=== PATIENT | male | born 1965 | race Caucasian/White ===

== ENCOUNTER → 2021-12-23 | Outpatient (CLI) | payer MEDICARE, SELFPAY ==
[2021-12-23 14:03] LABS: Amphetamine Urine VISTA NEGATIVE (<1000 ng/mL); Barbiturate Urine VISTA NEGATIVE (< 200 ng/mL); Benzodiazepine Urine VISTA NEGATIVE (< 200 ng/mL); Cocaine Urine VISTA NEGATIVE (< 300 ng/mL); Ecstacy Urine VISTA NEGATIVE (< 500 ng/mL); Methadone Urine VISTA NEGATIVE (< 300 ng/mL); PCP Urine VISTA NEGATIVE (< 25 ng/mL); THC Urine VISTA NEGATIVE (< 50 ng/mL); Vista UDS pH Range 5
== END | disposition home or self-care (01) ==
PROVIDERS: Visit Provider Anesthesiology Pain Medicine
DX: F11.20 Opioid dependence, uncomplicated (principal)
CPT/HCPCS: 80307

== ENCOUNTER → 2023-05-24 | Outpatient (CLI) | payer MEDICARE, SELFPAY ==
--- OUTSIDE RECORDS SUMMARY | 2023-05-24 19:48 | XMS RPT_ITS | CCD ---
Author Name Unknown Address [address] [place] [address] Organization [facility] Care Team Providers Care Qlikview Developer Name Role Phone Rios BELLAMY, Jay Olvera Primary Care Provider [phone] JAY NAITON Referring Unavailable LIDA, ANGELITA Attending Unavailable RIOS, JAY Olvera Primary Care Unavailable RIOS, JAY Olvera Primary Care Unavailable RIOS, JAY Olvera Attending Unavailable RIOS, JAY Olvera Referring Unavailable RIOS, JAY Olvera Primary Care Unavailable RIOS, JAY Olvera Referring Unavailable RIOS, JAY Olvera Primary Care Unavailable RIOS, JAY Olvera Attending Unavailable RIOS, JAY Olvera Referring Unavailable RIOS, JAY Olvera Primary Care Unavailable Jay Nation MD Primary Care Provider [phone] Allergies Allergy Classification Reported Allergen(s) Allergy Type Date of Onset Reaction(s) Facility (2 sources) Penicillins; Translations: [PENICILLINS] Propensity to adverse reactions 03-08-2006 [facility] Work Phone: (7 sources) Penicillins Propensity to adverse reactions 03-08-2006 [facility] Work Phone: Medications Completed/Discontinued Medications Medication Drug Class(es) Dates Sig (Normalized) Sig (Original) Acetaminophen (8 sources) acetaminophen (T YLENOL EXTRA STRENGTH ORAL) Take 1 tablet by mouth as needed. 0 Active Problems Problem Classification Problem Date Documented Date Episodic/Chronic Diabetes mellitus without complication (14 sources) Type 2 diabetes mellitus without complication; Translations: [Type 2 diabetes mellitus without complications] Onset: 11-16-2014 Chronic Disorders of lipid metabolism (12 sources) Mixed hyperlipidemia; Translations: [Mixed hyperlipidemia] Onset: 04-14-2021 04-14-2021 Chronic Esophageal disorders (8 sources) Gastroesophageal reflux disease; Translations: [Gastro-esophageal reflux disease without esophagitis] Onset: 04-14-2021 04-14-2021 Chronic Essential hypertension (3 sources) Essential hypertension; Translations: [Essential (primary) hypertension] Onset: 10-15-2022 10-15-2022 Chronic Other nutritional; endocrine; and metabolic disorders (8 sources) Obesity; Translations: [Obesity, unspecified] Onset: 05-02-2009 05-02-2009 Chronic Other screening for suspected conditions (not mental disorders or infectious disease) (3 sources) Patient encounter status; Translations: [Encounter for screening for malignant neoplasm of colon] Episodic Spondylosis; intervertebral disc disorders; other back problems (20 sources) Disorder of lumbar disc; Translations: [Unspecified thoracic, thoracolumbar and lumbosacral intervertebral disc disorder] Onset: 05-02-2009 Chronic Spondylosis; intervertebral disc disorders; other back problems (1 source) Chronic thoracic back pain; Translations: [Pain in thoracic spine] Episodic Results Test Name Value Interpretation Reference Range Facil ity Vital Signs Date Time Vital Sign Value Performing Clinician Faci lity 10-15-2022 08:22-0400 Diastolic blood pressure 81 mm[Hg] Jay Nation MD Work Phone: [facility] 10-15-2022 08:22-0400 Heart rate 84 /min Jay Nation MD Work Phone: [facility] 10-15-2022 08:22-0400 Systolic blood pressure 159 mm[Hg] Jay Nation MD Work Phone: [facility] 10-15-2022 08:17-0400 Body weight 112.95 kg Jay Nation MD Work Phone: [facility] 10-15-2022 08:17-0400 Respiratory rate 24 /min Jay Nation MD Work Phone: [facility] 10-15-2022 08:17-0400 SaO2% (BldA) [Mass fraction] 96 % Jay Nation MD Work Phone: [facility] 04-16-2022 08:57-0500 Body temperature 97.3 [degF] Jay Nation MD Work Phone: [facility] 04-16-2022 08:57-0500 Body weight 106.59 kg Jya Nation MD Work Phone: [facility] 04-16-2022 08:57-0500 Diastolic blood pressure 70 mm[Hg] Jay Nation MD Work Phone: [facility] 04-16-2022 08:57-0500 Heart rate 100 /min Jay Nation MD Work Phone: [facility] 04-16-2022 08:57-0500 Respiratory rate 20 /min Jay Nation MD Work Phone: [facility] 04-16-2022 08:57-0500 Systolic blood pressure 130 mm[Hg] Jay Nation MD Work Phone: [facility] 10-14-2021 08:54-0400 Body temperature 97.11 [degF] Jay Nation MD Work Phone: [facility] 10-14-2021 08:54-0400 Body weight 92.53 kg Jay Nation MD Work Phone: [facility] 10-14-2021 08:54-0400 Diastolic blood pressure 64 mm[Hg] Jay Nation MD Work Phone: [facility] 10-14-2021 08:54-0400 Heart rate 100 /min Jay Nation MD Work Phone: [facility] 10-14-2021 08:54-0400 Respiratory rate 24 /min Jay Nation MD Work Phone: [facility] 10-14-2021 08:54-0400 Systolic blood pressure 124 mm[Hg] Jay Nation MD Work Phone: [facility] 07-14-2021 08:59-0400 Body weight 92.99 kg Angelita Older GIVING OFFICER.RIPSHEAR OPERATOR Work Phone: [facility] 07-14-2021 08:59-0400 Diastolic blood pressure 74 mm[Hg] Angelita Older GIVING OFFICER.RIPSHEAR OPERATOR Work Phone: [facility] 07-14-2021 08:59-0400 Heart rate 108 /min Angelita Older GIVING OFFICER.RIPSHEAR OPERATOR Work Phone: [facility] 07-14-2021 08:59-0400 Respiratory rate 16 /min Angelita Older GIVING OFFICER.RIPSHEAR OPERATOR Work Phone: [facility] 07-14-2021 08:59-0400 SaO2% (BldA) [Mass fraction] 98 % Angelita Older GIVING OFFICER.RIPSHEAR OPERATOR Work Phone: [facility] 07-14-2021 08:59-0400 Systolic blood pressure 128 mm[Hg] Angelita Older GIVING OFFICER.RIPSHEAR OPERATOR Work Phone: [facility] Encounters Encounter Date Encounter Type Care Provider Facility Start: 05-06-2023 Refill Jay sapp MD Work Phone: [facility] [place] Procedures Date Procedure Procedure Detail Performing Clinician Start: 10-14-2021 Hemoglobin A1c/Hemoglobin.total in Blood Jay Nation MD Work Phone: Start: 04-14-2021 Adult depression screening assessment Angelita Older GIVING OFFICER.RIPSHEAR OPERATOR Work Phone: Plan of Treatment Date Care Activity Detail Author Start: 10-17-2023 Screening for malign ant neoplasm of colon [facility] Start: 10-16-2023 ANNUAL PCP TEAM CLAIMS COUNSEL [place]WIN DISEASE VISIT ANNUAL PCP TEAM CHRONIC DISEASE VISIT [facility] Start: 10-16-2023 COVID-19 VACCINE (3 - Moderna series) COVID-19 VACCINE (3 - Moderna series) [facility] Immunizations Immunization Date Immunization Notes Care Provider Fa cility 02-20-2015 influenza, injectabl e, quadrivalent, contains preservative Angelita Older GIVING OFFICER.RIPSHEAR OPERATOR Work Phone: [facility] 02-20-2015 influenza, seasonal, injectable Angelita Older GIVING OFFICER.RIPSHEAR OPERATOR Work Phone: [facility] Work Phone: 02-20-2015 influenza virus vacc ine, unspecified formulation Jay Nation MD Work Phone: [facility] 01-19-2014 influenza, seasonal, injectable Angelita Older GIVING OFFICER.RIPSHEAR OPERATOR Work Phone: [facility] 01-06-2013 influenza virus vacc ine, unspecified formulation Angelita Older GIVING OFFICER.RIPSHEAR OPERATOR Work Phone: [facility] 04-08-2012 influenza virus vacc ine, unspecified formulation Angelita Older GIVING OFFICER.RIPSHEAR OPERATOR Work Phone: [facility] 04-08-2012 pneumococcal polysaccharide vaccine, 23 valent Angelita Older GIVING OFFICER.RIPSHEAR OPERATOR Work Phone: [facility] Payers Date Payer Category Payer Medicare MEDICARE MEDICAR E A AND B [id number] 2004-Present [phone] [place] [address] Medicare [id number] 2004 Medicare MEDICARE MEDICAR E A AND B [id number] 2004-Present [phone] [place] [address] Medicare [id number] 2004 Medicare [id number] Social History Date Type Detail Facility Start: 01-06-2013 End: 01-14-2022 Tobacco smoking status NHIS Ex-smoker [facility] Work Phone: End: 01-06-1998 History of tobacco use Current smoker [facility] End: 01-06-1998 History of tobacco use Cigarette Smoker [facility] Start: 07-14-2021 End: 10-15-2022 Alcohol intake Current non-drinker of alcohol (finding) [facility] Start: 04-14-2021 History SDOH Alcohol Frequency 1 [facility] Start: 04-14-2021 History SDOH Social Connections Meetings 2 [facility] Start: 04-14-2021 History SDOH Social Connections Living 8 [facility] Start: 04-14-2021 History SDOH Physica l Activity DPW 0 [facility] Start: 1965 Sex Assigned At Not on file C [facility] Start: 07-04-2021 End: 10-14-2021 Exposure to SARS-CoV-2 (event) Not sure [facility] Start: 01-06-2013 End: 10-15-2022 Cigarettes smoked current (pack per day) - Reported 2 [facility] Work Phone: Start: 01-06-2013 End: 01-14-2022 Tobacco use and exposure Smokeless tobacco non-user [facility] Start: 04-16-2022 History SDOH Financial 3 [facility] Start: 04-14-2021 End: 10-15-2022 Social connection and isolation panel [facility] Work Phone: Do you belong to any clubs or organizations such as pres[employer]ian groups, unions, fraternal or athletic groups, or school groups? Yes [facility] Work Phone: Are you now , , , , never or living with a partner? Living with partner [facility] Work Phone: How often to you hav e a drink containing alcohol? Never [facility] Work Phone: Average Number of Drinks Not on file Ezequiel [facility] Work Phone: How hard is it for y ou to pay for the very basics like food, housing, medical care, and heating Somewhat hard [facility] Work Phone: Do you feel stress - tense, restless, nervous, or anxious, or unable to sleep at night because your mind is troubled all the time - these days [OSQ] Only a little [facility] Work Phone: (I/We) worried wheth er (my/our) food would run out before (I/we) got money to buy more. Never true [facility] Work Phone: In the past 12 month s, was there a time when you were not able to pay the mortgage or rent on time? No [facility] Work Phone: Medical Equipment Procedure Code Equipment Code Equipment Origin al Text Equipment Identifier Dates Use as instructe d to test 1-2 times daily Start: 08-08-2013 Clinical Notes 03-07-2012 to 05-06-2023 Telephone Encounter - Briseida Dee - 05/06/2023 9:21 AM Jay Danielson MD - 10/15/2022 9:07 AM EDTTelephone Encounter - Helena Singer - 06/16/2022 8:31 AM EDTPatient Instructions Note Date & Type Note Facility 05-06-2023 Miscellaneous Notes Formattin g of this note might be different from the original. Patient called asking why his prescriptions were not refilled. Explained no refill requests were called/sent in. Some it showed he had refills. Stated he didn't get anywhere with [facility]. Called [facility] and pharmacy stated they refilled them on 04/09 and he did not pick them up so they went back to stock. She said she will refill all that are due. Called patient back and explained situation and he stated they did not contact him last month that refills were waiting for him. He will discuss it with them when he picks them up today. No further questions. documented in this encounter [facility] 10-15-2022 Note HNO ID: [id number] Author: Jay Nation MD Service: ? Author Type: Physician Type: Progress Notes Filed: 10/15/2022 9:39 AM Note Text: This note was created using Thinker Thingriter. Subjective Keith Vera is a 57 year old male. He had no new concerns. He was taking his medications. He will schedule his eye exam when his budget eases up. He declined referral to [facility]. Review of Systems Constitutional: Positive for unexpected weight change. Negative for fatigue and fever. Respiratory: Negative for cough and shortness of breath. Cardiovascular: Negative for chest pain, palpitations and leg swelling. Gastrointestinal: Negative. Neurological: Negative. ACTIVE PROBLEM LIST Lumbar Disc Disease Obesity Failed Back Syndrome Type 2 Diabetes Mellitus Without Complication (Hcc) Gerd (Gastroesophageal Reflux Disease) Mixed Hyperlipidemia Social History Tobacco Use Smoking status: Former Packs/day: 2.00 Years: 20.00 Total pack years: 40.00 Types: Cigarettes Quit date: 01/06/1998 Years since quittin.7 Smokeless tobacco: Never Substance Use Topics Alcohol use: No Drug use: Never Current Outpatient Medications Medication Sig gabapentin (NEURONTIN) 300 mg capsule Take 1 capsule by mouth every morning AND 1 capsule daily after lunch AND 2 capsules daily at bedtime. Do all this for 180 days. glipiZIDE (GLUCOTROL XL) 5 mg 24 hr tablet Take 1 tablet by mouth daily before breakfast. meloxicam (MOBIC) 15 mg tablet Take 1 tablet by mouth once daily. With food. metFORMIN (GLUCOPHAGE) 500 mg tablet Take 2 tablets by mouth twice daily with meals. . lisinopril (ZESTRIL) 5 mg tablet Take 1 tablet by mouth once daily. omeprazole (PRILOSEC) 40 mg capsule Take 1 capsule by mouth once daily. pioglitazone (ACTOS) 30 mg tablet Take 1 tablet by mouth once daily. buprenorphine (BUTRANS) 5 mcg/hour Apply 1 Patch as directed one time a week. PER PAIN MANAGEMENT. atorvastatin (LIPITOR) 20 mg tablet Take 1 tablet by mouth daily at bedtime. For cholesterol. acetaminophen (TYLENOL EXTRA STRENGTH ORAL) Take 1 tablet by mouth as needed. Blood-Glucose Meter misc Use as directed blood sugar diagnostic (BLOOD GLUCOSE TEST) test strip Use as instructed to test 1-2 times daily No current facility-administered medications for this visit. Objective BP 159/81 (BP Site: Left Arm, BP Position: Sitting, BP Cuff Size: Large Adult) Pulse 84 Resp 24 Wt 112.9 kg (249 lb) SpO2 96% BMI 35.73 kg/m? Physical Exam Constitutional: General: He is not in acute distress. Cardiovascular: Rate and Rhythm: Normal rate and regular rhythm. Heart sounds: No murmur heard. No gallop. Pulmonary: Breath sounds: Normal breath sounds. Musculoskeletal: Right lower leg: No edema. Left lower leg: No edema. Neurological: General: No focal deficit present. Mental Status: He is alert. Comments: Ambulatory with cane. Psychiatric: Mood and Affect: Mood normal. Component Latest Ref Rng AND Units 10/05/2022 Protein, Total 6.3 - 8.0 g/dL 7.1 Albumin 3.9 - 4.9 g/dL 4.6 Calcium 8.5 - 10.2 mg/dL 10.1 Bilirubin, Total 0.2 - 1.3 mg/dL 0.3 Alkaline Phosphatase 38 - 113 U/L 52 AST 14 - 40 U/L 29 ALT 10 - 54 U/L 36 Glucose 74 - 99 mg/dL 144 (H) BUN 9 - 24 mg/dL 16 Creatinine 0.73 - 1.22 mg/dL 0.74 Sodium 136 - 144 mmol/L 137 Potassium 3.7 - 5.1 mmol/L 5.1 Chloride 97 - 105 mmol/L 98 CO2 22 - 30 mmol/L 28 Anion Gap 9 - 18 mmol/L 11 eGFR >=60 mL/min/1.73mA? 106 WBC 3.70 - 11.00 k/uL 7.91 RBC 4.20 - 6.00 m/uL 4.99 Hemoglobin 13.0 - 17.0 g/dL 14.8 Hematocrit 39.0 - 51.0 % 45.4 MCV 80.0 - 100.0 fL 91.0 MCH 26.0 - 34.0 pg 29.7 MCHC 30.5 - 36.0 g/dL 32.6 RDW-CV 11.5 - 15.0 % 13.6 Platelet Count 150 - 400 k/uL 273 MPV 9.0 - 12.7 fL 11.6 Absolute nRBC <0.01 k/uL <0.01 Cholesterol, Total <200 mg/dL 198 Triglyceride <150 mg/dL 167 (H) HDL Cholesterol >39 mg/dL 32 (L) Non HDL Cholesterol <130 mg/dL 166 (H) Fasting Time hrs 13 VLDL Cholesterol <30 mg/dL 33 (H) TC:HDL Ratio <5.10 6.19 (H) LDL Cholesterol <100 mg/dL 133 (H) LDL:HDL Ratio <2.54 4.16 (H) Hemoglobin A1C 4.3 - 5.6 % 7.0 (H) Estimated Average Glucose mg/dL 154 Assessment and Plan 1. Type 2 diabetes mellitus without complication, without long-term current use of insulin (HCC) - ICD9: 250.00, ICD10: E11.9 (primary diagnosis) - Improving control - Continue current medications - Discussed need for and benefit of weight loss. BMI 35.73 kg/(m2) - BASIC METABOLIC PNL - HGB A1C - ALBUMIN/CREAT RATIO RND UR 2. Mixed hyperlipidemia - ICD9: 272.2, ICD10: E78.2 - Controlled - Continue current medications - Counseled on healthy diet and regular exercise - ATORVASTATIN 20 MG TABLET 3. Primary hypertension - ICD9: 401.9, ICD10: I10 - New diagnosis - Increase lisinopril - Reviewed risks of hypertension and principles of treatment - LISINOPRIL 10 MG TABLET 4. Screening for colon (more content not included)... [facility] 10-15-2022 History of Presen t illness Narrative This note was created using SpaceListter. Subjective Keith Vera is a 57 year old male. He had no new concerns. He was taking his medications. He will schedule his eye exam when his budget eases up. He declined referral to [facility]. Review of Systems Constitutional: Positive for unexpected weight change. Negative for fatigue and fever. Respiratory: Negative for cough and shortness of breath. Cardiovascular: Negative for chest pain, palpitations and leg swelling. Gastrointestinal: Negative. Neurological: Negative. ACTIVE PROBLEM LIST Lumbar Disc Disease Obesity Failed Back Syndrome Type 2 Diabetes Mellitus Without Complication (Hcc) Gerd (Gastroesophageal Reflux Disease) Mixed Hyperlipidemia Social History Tobacco Use Smoking status: Former Packs/day: 2.00 Years: 20.00 Total pack years: 40.00 Types: Cigarettes Quit date: 01/06/1998 Years since quittin.7 Smokeless tobacco: Never Substance Use Topics Alcohol use: No Drug use: Never Current Outpatient Medications Medication Sig gabapentin (NEURONTIN) 300 mg capsule Take 1 capsule by mouth every morning AND 1 capsule daily after lunch AND 2 capsules daily at bedtime. Do all this for 180 days. glipiZIDE (GLUCOTROL XL) 5 mg 24 hr tablet Take 1 tablet by mouth daily before breakfast. meloxicam (MOBIC) 15 mg tablet Take 1 tablet by mouth once daily. With food. metFORMIN (GLUCOPHAGE) 500 mg tablet Take 2 tablets by mouth twice daily with meals. . lisinopril (ZESTRIL) 5 mg tablet Take 1 tablet by mouth once daily. omeprazole (PRILOSEC) 40 mg capsule Take 1 capsule by mouth once daily. pioglitazone (ACTOS) 30 mg tablet Take 1 tablet by mouth once daily. buprenorphine (BUTRANS) 5 mcg/hour Apply 1 Patch as directed one time a week. PER PAIN MANAGEMENT. atorvastatin (LIPITOR) 20 mg tablet Take 1 tablet by mouth daily at bedtime. For cholesterol. acetaminophen (TYLENOL EXTRA STRENGTH ORAL) Take 1 tablet by mouth as needed. Blood-Glucose Meter [facility] Use as directed blood sugar diagnostic (BLOOD GLUCOSE TEST) test strip Use as instructed to test 1-2 times daily No current facility-administered medications for this visit. Objective BP 159/81 (BP Site: Left Arm, BP Position: Sitting, BP Cuff Size: Large Adult) Pulse 84 Resp 24 Wt 112.9 kg (249 lb) SpO2 96% BMI 35.73 kg/m Physical Exam Constitutional: General: He is not in acute distress. Cardiovascular: Rate and Rhythm: Normal rate and regular rhythm. Heart sounds: No murmur heard. No gallop. Pulmonary: Breath sounds: Normal breath sounds. Musculoskeletal: Right lower leg: No edema. Left lower leg: No edema. Neurological: General: No focal deficit present. Mental Status: He is alert. Comments: Ambulatory with cane. Psychiatric: Mood and Affect: Mood normal. Component Latest Ref Rng & Units 10/05/2022 Protein, Total 6.3 - 8.0 g/dL 7.1 Albumin 3.9 - 4.9 g/dL 4.6 Calcium 8.5 - 10.2 mg/dL 10.1 Bilirubin, Total 0.2 - 1.3 mg/dL 0.3 Alkaline Phosphatase 38 - 113 U/L 52 AST 14 - 40 U/L 29 ALT 10 - 54 U/L 36 Glucose 74 - 99 mg/dL 144 (H) BUN 9 - 24 mg/dL 16 Creatinine 0.73 - 1.22 mg/dL 0.74 Sodium 136 - 144 mmol/L 137 Potassium 3.7 - 5.1 mmol/L 5.1 Chloride 97 - 105 mmol/L 98 CO2 22 - 30 mmol/L 28 Anion Gap 9 - 18 mmol/L 11 eGFR >=60 mL/min/1.73m 106 WBC 3.70 - 11.00 k/uL 7.91 RBC 4.20 - 6.00 m/uL 4.99 Hemoglobin 13.0 - 17.0 g/dL 14.8 Hematocrit 39.0 - 51.0 % 45.4 MCV 80.0 - 100.0 fL 91.0 MCH 26.0 - 34.0 pg 29.7 MCHC 30.5 - 36.0 g/dL 32.6 RDW-CV 11.5 - 15.0 % 13.6 Platelet Count 150 - 400 k/uL 273 MPV 9.0 - 12.7 fL 11.6 Absolute nRBC <0.01 k/uL <0.01 Cholesterol, Total <200 mg/dL 198 Triglyceride <150 mg/dL 167 (H) HDL Cholesterol >39 mg/dL 32 (L) Non HDL Cholesterol <130 mg/dL 166 (H) Fasting Time hrs 13 VLDL Cholesterol <30 mg/dL 33 (H) TC:HDL Ratio <5.10 6.19 (H) LDL Cholesterol <100 mg/dL 133 (H) LDL:HDL Ratio <2.54 4.16 (H) Hemoglobin A1C 4.3 - 5.6 % 7.0 (H) Estimated Average Glucose mg/dL 154 Assessment and Plan 1. Type 2 diabetes mellitus without complication, without long-term current use of insulin (HCC) - ICD9: 250.00, ICD10: E11.9 (primary diagnosis) - Improving control - Continue current medications - Discussed need for and benefit of weight loss. BMI 35.73 kg/(m^2) - BASIC METABOLIC PNL - HGB A1C - ALBUMIN/CREAT RATIO RND UR 2. Mixed hyperlipidemia - ICD9: 272.2, ICD10: E78.2 - Controlled - Continue current medications - Counseled on healthy diet and regular exercise - ATORVASTATIN 20 MG TABLET 3. Primary hypertension - ICD9: 401.9, ICD10: I10 - New diagnosis - Increase lisinopril - Reviewed risks of hypertension and principles of treatment - LISINOPRIL 10 MG TABLET 4. Screening for colon cancer - ICD9: V76.51, ICD10: Z12.11 - FECAL OCCULT BLOOD TEST 5. Screening for prostate cancer - ICD9: V76.44, ICD10: Z12.5 - PSA/PROSTSPECAG SCRN He preferred follow ups every 6 months. Jay Nation MD documented in this encounter [facility] 06-16-2022 Miscellaneous Notes Formattin g of this note is different from the original. Patient has been identified by name and date of : Yes, Provider Rios Date 06-16-22 Time 8:32 AM Patient phones for refill(s): Requested Prescriptions No prescriptions requested or ordered in this encounter Date of last office visit in primary care: 04-16-22 Last 2 Encounter Wt Readings: Date: Wt: 04/16/2022 106.6 kg (235 lb) 01/14/2022 101.6 kg (224 lb) Previous labs/tests for medication: Not applicable Please advise. Thank you. Helena Singer Pt has brought in prescription bottles to fill his current prescription for the pioglitazine says 15 mg not 30 please clarify. documented in this encounter [facility] 04-16-2022 Note HNO ID: [id number] Author: Jay Nation MD Service: ? Author Type: Physician Type: Progress Notes Filed: 04/16/2022 9:49 AM Note Text: This note was created using Thinker Thingriter. Subjective Keith Vera is a 57 year old male. His pain was controlled per Dr. Swartz. He was on Butrans weekly. He was gaining weight. He preferred not to check his glucose. He will plan on having his eye exam this year. He voiced some financial strain, but declined [facility] referral. Review of Systems Constitutional: Positive for unexpected weight change. Negative for chills, fatigue and fever. HENT: Negative. Eyes: Negative. Respiratory: Negative for chest tightness and shortness of breath. Cardiovascular: Negative for chest pain, palpitations and leg swelling. Gastrointestinal: Negative. Psychiatric/Behavioral: Negative. ACTIVE PROBLEM LIST Lumbar Disc Disease Obesity Failed Back Syndrome Type 2 Diabetes Mellitus Without Complication (Hcc) Gerd (Gastroesophageal Reflux Disease) Mixed Hyperlipidemia Current Outpatient Medications Medication Sig pioglitazone (ACTOS) 30 mg tablet Take 1 tablet by mouth once daily. metFORMIN (GLUCOPHAGE) 500 mg tablet Take 2 tablets by mouth twice daily with meals. . atorvastatin (LIPITOR) 20 mg tablet Take 1 tablet by mouth daily at bedtime. For cholesterol. lisinopril (ZESTRIL, PRINIVIL) 5 mg tablet Take 1 tablet by mouth once daily. omeprazole (PRILOSEC) 40 mg capsule Take 1 capsule by mouth once daily. acetaminophen (TYLENOL EXTRA STRENGTH ORAL) Take 1 tablet by mouth as needed. Blood-Glucose Meter [facility] Use as directed blood sugar diagnostic (BLOOD GLUCOSE TEST) test strip Use as instructed to test 1-2 times daily gabapentin (NEURONTIN) 300 mg capsule Take 1 capsule by mouth every morning AND 1 capsule daily after lunch AND 2 capsules daily at bedtime. Do all this for 90 days. glipiZIDE (GLUCOTROL XL) 5 mg 24 hr tablet Take 1 tablet by mouth daily before breakfast. meloxicam (MOBIC) 15 mg tablet Take 1 tablet by mouth once daily. With food. buprenorphine (BUTRANS) 5 mcg/hour Apply 1 Patch as directed one time a week. PER PAIN MANAGEMENT. No current facility-administered medications for this visit. Objective BP 130/70 (BP Site: Left Arm, BP Position: Sitting, BP Cuff Size: Large Adult) Pulse 100 Temp 36.3 ?C (97.3 ?F) (Temporal) Resp 20 Wt 106.6 kg (235 lb) BMI 33.72 kg/m? Physical Exam Constitutional: General: He is not in acute distress. Appearance: He is not ill-appearing. HENT: Head: Normocephalic. Cardiovascular: Rate and Rhythm: Regular rhythm. Tachycardia present. Heart sounds: No murmur heard. No gallop. Pulmonary: Effort: Pulmonary effort is normal. Breath sounds: Normal breath sounds. Musculoskeletal: Right lower leg: No edema. Left lower leg: No edema. Neurological: Mental Status: He is alert. Gait: Gait abnormal. Comments: Ambulatory with cane. Psychiatric: Mood and Affect: Mood normal. Feet:Shoes and socks removed, No deformities, ulcers, calluses, normal distal pulses, sensitive to 10 gm monofilament, and nails notable for Deformed, Hypertrophic, or Yellowish Component Latest Ref Rng AND Units 03/18/2022 Protein, Total 6.3 - 8.0 g/dL 7.5 Albumin 3.9 - 4.9 g/dL 4.8 Calcium 8.5 - 10.2 mg/dL 9.7 Bilirubin, Total 0.2 - 1.3 mg/dL 0.3 Alkaline Phosphatase 38 - 113 U/L 61 AST 14 - 40 U/L 25 ALT 10 - 54 U/L 35 Glucose 74 - 99 mg/dL 121 (H) BUN 9 - 24 mg/dL 16 Creatinine 0.73 - 1.22 mg/dL 0.64 (L) Sodium 136 - 144 mmol/L 138 Potassium 3.7 - 5.1 mmol/L 4.5 Chloride 97 - 105 mmol/L 100 CO2 22 - 30 mmol/L 27 Anion Gap 9 - 18 mmol/L 11 eGFR >=60 mL/min/1.73mA? 111 Cholesterol, Total <200 mg/dL 170 Triglyceride <150 mg/dL 227 (H) HDL Cholesterol >39 mg/dL 35 (L) Non HDL Cholesterol <130 mg/dL 135 (H) Fasting Time hrs 14 VLDL Cholesterol <30 mg/dL 45 (H) TC:HDL Ratio <5.10 4.86 LDL Cholesterol <100 mg/dL 90 LDL:HDL Ratio <2.54 2.57 (H) Creatinine, Ur Random (UCRR) 20.0 - 300.0 mg/dL 210.3 Albumin, Urine Random mg/L 17.6 Albumin/Creat Ratio <30 mg/g 8 Hemoglobin A1C 4.3 - 5.6 % 7.4 (H) Estimated Average Glucose mg/dL 166 Assessment and Plan 1. Mixed hyperlipidemia - ICD9: 272.2, ICD10: E78.2 (primary diagnosis) - good control - Continue current medication. - LIPID PANEL BASIC 2. Lumbar disc disease - ICD9: 722.93, ICD10: M51.9 Chronic low back pain Refilled. Opioid per pain management. - GABAPENTIN 300 MG CAPSULE - MELOXICAM 15 MG TABLET 3. Failed back syndrome - ICD9: 722.80, ICD10: M96.1 See above. - GABAPENTIN 300 MG CAPSULE - MELOXICAM 15 MG TABLET - DEPRESSION SCREENING/ASSESSMENT - BUPRENORPHINE 5 MCG/HOUR WEEKLY TRANSDERMAL PATCH 4. Type 2 diabetes mellitus without complication, without long-term current use of insulin (HCC) - ICD9: 250.00, ICD10: E11.9 Controlled. - We discussed more novel medications like GLP1a and SGLT2 (more content not included)... [facility] 04-16-2022 History of Presen t illness Narrative This note was created using [employer] Thing[employer]. Subjective Keith Vera is a 57 year old male. His pain was controlled per Dr. Swartz. He was on Butrans weekly. He was gaining weight. He preferred not to check his glucose. He will plan on having his eye exam this year. He voiced some financial strain, but declined [facility] referral. Review of Systems Constitutional: Positive for unexpected weight change. Negative for chills, fatigue and fever. HENT: Negative. Eyes: Negative. Respiratory: Negative for chest tightness and shortness of breath. Cardiovascular: Negative for chest pain, palpitations and leg swelling. Gastrointestinal: Negative. Psychiatric/Behavioral: Negative. ACTIVE PROBLEM LIST Lumbar Disc Disease Obesity Failed Back Syndrome Type 2 Diabetes Mellitus Without Complication (Hcc) Gerd (Gastroesophageal Reflux Disease) Mixed Hyperlipidemia Current Outpatient Medications Medication Sig pioglitazone (ACTOS) 30 mg tablet Take 1 tablet by mouth once daily. metFORMIN (GLUCOPHAGE) 500 mg tablet Take 2 tablets by mouth twice daily with meals. . atorvastatin (LIPITOR) 20 mg tablet Take 1 tablet by mouth daily at bedtime. For cholesterol. lisinopril (ZESTRIL, PRINIVIL) 5 mg tablet Take 1 tablet by mouth once daily. omeprazole (PRILOSEC) 40 mg capsule Take 1 capsule by mouth once daily. acetaminophen (TYLENOL EXTRA STRENGTH ORAL) Take 1 tablet by mouth as needed. Blood-Glucose Meter [facility] Use as directed blood sugar diagnostic (BLOOD GLUCOSE TEST) test strip Use as instructed to test 1-2 times daily gabapentin (NEURONTIN) 300 mg capsule Take 1 capsule by mouth every morning AND 1 capsule daily after lunch AND 2 capsules daily at bedtime. Do all this for 90 days. glipiZIDE (GLUCOTROL XL) 5 mg 24 hr tablet Take 1 tablet by mouth daily before breakfast. meloxicam (MOBIC) 15 mg tablet Take 1 tablet by mouth once daily. With food. buprenorphine (BUTRANS) 5 mcg/hour Apply 1 Patch as directed one time a week. PER PAIN MANAGEMENT. No current facility-administered medications for this visit. Objective BP 130/70 (BP Site: Left Arm, BP Position: Sitting, BP Cuff Size: Large Adult) Pulse 100 Temp 36.3 C (97.3 F) (Temporal) Resp 20 Wt 106.6 kg (235 lb) BMI 33.72 kg/m Physical Exam Constitutional: General: He is not in acute distress. Appearance: He is not ill-appearing. HENT: Head: Normocephalic. Cardiovascular: Rate and Rhythm: Regular rhythm. Tachycardia present. Heart sounds: No murmur heard. No gallop. Pulmonary: Effort: Pulmonary effort is normal. Breath sounds: Normal breath sounds. Musculoskeletal: Right lower leg: No edema. Left lower leg: No edema. Neurological: Mental Status: He is alert. Gait: Gait abnormal. Comments: Ambulatory with cane. Psychiatric: Mood and Affect: Mood normal. Feet:Shoes and socks removed, No deformities, ulcers, calluses, normal distal pulses, sensitive to 10 gm monofilament, and nails notable for Deformed, Hypertrophic, or Yellowish Component Latest Ref Rng & Units 03/18/2022 Protein, Total 6.3 - 8.0 g/dL 7.5 Albumin 3.9 - 4.9 g/dL 4.8 Calcium 8.5 - 10.2 mg/dL 9.7 Bilirubin, Total 0.2 - 1.3 mg/dL 0.3 Alkaline Phosphatase 38 - 113 U/L 61 AST 14 - 40 U/L 25 ALT 10 - 54 U/L 35 Glucose 74 - 99 mg/dL 121 (H) BUN 9 - 24 mg/dL 16 Creatinine 0.73 - 1.22 mg/dL 0.64 (L) Sodium 136 - 144 mmol/L 138 Potassium 3.7 - 5.1 mmol/L 4.5 Chloride 97 - 105 mmol/L 100 CO2 22 - 30 mmol/L 27 Anion Gap 9 - 18 mmol/L 11 eGFR >=60 mL/min/1.73m 111 Cholesterol, Total <200 mg/dL 170 Triglyceride <150 mg/dL 227 (H) HDL Cholesterol >39 mg/dL 35 (L) Non HDL Cholesterol <130 mg/dL 135 (H) Fasting Time hrs 14 VLDL Cholesterol <30 mg/dL 45 (H) TC:HDL Ratio <5.10 4.86 LDL Cholesterol <100 mg/dL 90 LDL:HDL Ratio <2.54 2.57 (H) Creatinine, Ur Random (UCRR) 20.0 - 300.0 mg/dL 210.3 Albumin, Urine Random mg/L 17.6 Albumin/Creat Ratio <30 mg/g 8 Hemoglobin A1C 4.3 - 5.6 % 7.4 (H) Estimated Average Glucose mg/dL 166 Assessment and Plan 1. Mixed hyperlipidemia - ICD9: 272.2, ICD10: E78.2 (primary diagnosis) - good control - Continue current medication. - LIPID PANEL BASIC 2. Lumbar disc disease - ICD9: 722.93, ICD10: M51.9 Chronic low back pain Refilled. Opioid per pain management. - GABAPENTIN 300 MG CAPSULE - MELOXICAM 15 MG TABLET 3. Failed back syndrome - ICD9: 722.80, ICD10: M96.1 See above. - GABAPENTIN 300 MG CAPSULE - MELOXICAM 15 MG TABLET - DEPRESSION SCREENING/ASSESSMENT - BUPRENORPHINE 5 MCG/HOUR WEEKLY TRANSDERMAL PATCH 4. Type 2 diabetes mellitus without complication, without long-term current use of insulin (HCC) - ICD9: 250.00, ICD10: E11.9 Controlled. - We discussed more novel medications like GLP1a and SGLT2i. He preferred no change for now. - GLIPIZIDE ER 5 MG TABLET, EXTENDED RELEASE 24 HR - COMP METABOLIC PANEL - HGB A1C - CBC Jay Nation MD documented in this encounter [facility] 01-14-2022 Note HNO ID: [id number] Author: Angelita White APRN.RIPSHEAR OPERATOR Service: ? Author Type: Nurse Practitioner Type: Progress Notes Filed: 01/14/2022 9:40 AM Note Text: CC: Patient presents with: F/U 3 Month HPI Keith Vera is a 56 year old male who presents today for above Type 2 diabetes mellitus without complication (HCC) Home blood sugar readings: does not check Hypoglycemia: No symptoms He is compliant with medication(s) and is tolerating med(s) without any side effects. Denies increased thirst, urinary frequency, nocturia, fatigue, unintentional weight loss, blurred vision, ulcers or sores on feet Patient's last HgA1C was Hemoglobin A1C (%) Date Value 07/07/2021 9.5 03/10/2021 11.4 03/02/2018 8.7 Hemoglobin A1C (POCT) (%) Date Value 10/14/2021 8.7 Failed back syndrome Chronic back and leg pain secondary to sciatica and diabetic neuropathy. Taking Gabapentin and Meloxicam. He was referred to pain management at his last appointment and has established with Dr. Swartz. He is getting his second epidural injection next month. Keeping pain somewhat under control. Still interfering with ADL's and sleep. REVIEW OF SYSTEMS See HPI PAST MEDICAL HISTORY Diagnosis Date Diabetes mellitus (HCC) Failed back syndrome failed drug screen/stopped hydrocodone 09/04 GERD (gastroesophageal reflux disease) 04/14/2021 Lumbar disc disease 05/02/2009 * S/p Laminectomy 2003 (Dr. Altman), TOTAL DISABILITY DUE TO THAT. Mixed hyperlipidemia 04/14/2021 Type 2 diabetes mellitus without complication (HCC) 11/16/2014 Ventricular bigeminy 04/15/2009 PAST SURGICAL HISTORY Procedure Laterality Date LAMINECTOMY W/O FFD 03/23 VERT SEG LUMBAR 2003 +/- Laminectomy, lumbar, Dr. Altman ALLERGIES Penicillins MEDICATIONS glipiZIDE (GLUCOTROL XL) 5 mg 24 hr tablet Take 1 tablet by mouth daily before breakfast. gabapentin (NEURONTIN) 300 mg capsule Take 1 capsule by mouth every morning AND 1 capsule daily after lunch AND 2 capsules daily at bedtime. Do all this for 90 days. meloxicam (MOBIC) 15 mg tablet Take 1 tablet by mouth once daily. With food. pioglitazone (ACTOS) 30 mg tablet Take 1 tablet by mouth once daily. metFORMIN (GLUCOPHAGE) 500 mg tablet Take 2 tablets by mouth twice daily with meals. . atorvastatin (LIPITOR) 20 mg tablet Take 1 tablet by mouth daily at bedtime. For cholesterol. lisinopril (ZESTRIL, PRINIVIL) 5 mg tablet Take 1 tablet by mouth once daily. omeprazole (PRILOSEC) 40 mg capsule Take 1 capsule by mouth once daily. acetaminophen (TYLENOL EXTRA STRENGTH ORAL) Take 1 tablet by mouth as needed. Blood-Glucose Meter misc Use as directed blood sugar diagnostic (BLOOD GLUCOSE TEST) test strip Use as instructed to test 1-2 times daily FAMILY HISTORY Problem Relation Age of Onset Breast Cancer Mother Hypertension Mother Ischemic Heart Disease Mother ID 2010 Cancer Father Diabetes Father Coronary Artery Disease Father CABG x 4, age 73 No Known Problems Sister No Known Problems Sister Cancer Brother pancreatic hernia Aneurysm Brother Diabetes Brother Ischemic Heart Disease Brother No Known Problems Brother No Known Problems Brother Prostate Cancer Other none Colon Cancer Other none Social History Tobacco Use Smoking status: Former Packs/day: 2.00 Years: 20.00 Pack years: 40.00 Types: Cigarettes Quit date: 01/06/1998 Years since quittin.0 Smokeless tobacco: Never Substance Use Topics Alcohol use: No Drug use: Never PHYSICAL EXAM BP 132/74 Pulse 88 Resp 18 Wt 101.6 kg (224 lb) BMI 32.14 kg/m? General Appearance: well appearing, in no acute distress, alert Lungs: Lungs clear to auscultation. No wheezing, rhonchi, rales. Heart: RRR without murmur, gallop, or rubs. No ectopy Health maintenance reviewed with patient: DEPRESSION ASSESSMENT Never done DILATED RETINAL EXAM due on 10/25/2021 HBA1C due on 01/14/2022 INFLUENZA(1) due on 09/18/2022 COVID-19 VACCINE(3 - Booster for Moderna series) due on 10/14/2022 DTAP,TDAP,TD(1 - Tdap) due on 01/14/2023 HEPATITIS B(1 of 3 - 3-dose series) due on 01/14/2023 SHINGRIX VACCINE(1 of 2) due on 01/14/2023 PNEUMOCOCCAL(2 - PCV) due on 01/14/2023 URINE ALBUMIN:CREATININE RATIO due on 03/10/2022 LDL CHOLESTEROL due on 03/10/2022 DIABETIC FOOT EXAM due on 04/14/2022 PROSTATE CANCER SCREENING DISCUSSION due on 07/05/2022 COLORECTAL CANCER SCREENING due on 10/14/2022 ANNUAL PCP TEAM CHRONIC DISEASE VISIT due on 10/14/2022 HEPATITIS C SCREENING Completed HIV SCREENING Discontinued DATA REVIEWED: Most recent labs ASSESSMENT/PLAN: 1. Type 2 diabetes mellitus without complication, without long-term current use of insulin (HCC) - ICD9: 250.00, ICD10: E11.9 (primary diagnosis) Patient declined finger stick HgbA1c today - Continue current medications - Blood glucose monitoring on a 3 times a week schedule, patient declined - GLIPIZIDE ER 5 MG TABLET, (more content not included)... [facility] 10-20-2021 Miscellaneous Notes Formattin g of this note might be different from the original. Spoke with patient. Given message from provider's office. Patient verbalizes understanding. Gabriella Rey RN Left message to call office. 10/20/2021 4:19 PM Stool for colon cancer screening negative. Angelita White APRN.CNP documented in this encounter [facility] 10-15-2021 Miscellaneous Notes Order and patient information faxed to Dr. Swartz's office. The order is already in. Schedule locally, non [facility] Dr. Swartz. Pt called in to schedule for pain management, please place order so we can schedule. Thank you! JAMARI Ballesteros October 14, 2021 5:22 PM documented in this encounter [facility] 10-14-2021 Instructions Jay Nation MD - 10/14/2021 9:49 AM EDT Glipizide added for better diabetes control. documented in this encounter [facility] 10-14-2021 History of Presen t illness Narrative This note was created using SpaceListter. Subjective Keith Vera is a 56 year old male. He was not checking his sugars. Hypertension was controlled. His main concern was pain relief. He wanted opioids for chronic back pain. He had never been to pain management. Review of Systems Constitutional: Negative. Respiratory: Negative. Cardiovascular: Negative. Gastrointestinal: Negative. Genitourinary: Negative. Musculoskeletal: Positive for back pain. Psychiatric/Behavioral: Positive for sleep disturbance. ACTIVE PROBLEM LIST Lumbar Disc Disease Obesity Failed Back Syndrome Type 2 Diabetes Mellitus Without Complication (Hcc) Gerd (Gastroesophageal Reflux Disease) Mixed Hyperlipidemia Social History Tobacco Use Smoking status: Former Smoker Packs/day: 2.00 Years: 20.00 Pack years: 40.00 Types: Cigarettes Quit date: 01/06/1998 Years since quittin.7 Smokeless tobacco: Never Used Substance Use Topics Alcohol use: No Drug use: Never Current Outpatient Medications Medication Sig gabapentin (NEURONTIN) 300 mg capsule Take 1 capsule by mouth every morning AND 1 capsule daily after lunch AND 2 capsules daily at bedtime. Do all this for 90 days. meloxicam (MOBIC) 15 mg tablet Take 1 tablet by mouth once daily. With food. pioglitazone (ACTOS) 30 mg tablet Take 1 tablet by mouth once daily. metFORMIN (GLUCOPHAGE) 500 mg tablet Take 2 tablets by mouth twice daily with meals. . atorvastatin (LIPITOR) 20 mg tablet Take 1 tablet by mouth daily at bedtime. For cholesterol. lisinopril (ZESTRIL, PRINIVIL) 5 mg tablet Take 1 tablet by mouth once daily. omeprazole (PRILOSEC) 40 mg capsule Take 1 capsule by mouth once daily. acetaminophen (TYLENOL EXTRA STRENGTH ORAL) Take 1 tablet by mouth as needed. Blood-Glucose Meter misc Use as directed blood sugar diagnostic (BLOOD GLUCOSE TEST) test strip Use as instructed to test 1-2 times daily No current facility-administered medications for this visit. Objective BP 124/64 (BP Site: Left Arm, BP Position: Sitting, BP Cuff Size: Large Adult) Pulse 100 Temp 36.2 C (97.1 F) (Temporal Artery) Resp 24 Wt 92.5 kg (204 lb) BMI 29.27 kg/m Physical Exam Constitutional: General: He is not in acute distress. Pulmonary: Effort: Pulmonary effort is normal. Neurological: Mental Status: He is alert. Gait: Gait abnormal. Comments: Ambulatory with cane. Assessment and Plan 1. Failed back syndrome - ICD9: 722.80, ICD10: M96.1 (primary diagnosis) - GABAPENTIN 300 MG CAPSULE. Dose increased. Discussed medication dosage, usage, goals of therapy, and side effects. - MELOXICAM 15 MG TABLET - CONSULT TO PAIN MGT. Dr. Swartz. 2. Lumbar disc disease - ICD9: 722.93, ICD10: M51.9 Chronic low back pain - GABAPENTIN 300 MG CAPSULE - MELOXICAM 15 MG TABLET - CONSULT TO PAIN MGT 3. Type 2 diabetes mellitus without complication, without long-term current use of insulin (HCC) - ICD9: 250.00, ICD10: E11.9 poorly controlled - Continue current medications - Add glipizide (Glucotrol) - CONSULT TO OPHTHALMOLOGY - HEMOGLOBIN A1C (POC) - COMP METABOLIC PANEL - HGB A1C - ALBUMIN/CREAT RATIO RND UR - GLIPIZIDE ER 5 MG TABLET, EXTENDED RELEASE 24 HR. Add this medication. Discussed medication dosage, usage, goals of therapy, and side effects. Hypoglycemia discussed. 4. Screening for colon cancer - ICD9: V76.51, ICD10: Z12.11 - FECAL OCCULT BLOOD TEST 5. Mixed hyperlipidemia - ICD9: 272.2, ICD10: E78.2 - good control - Continue current medication. - LIPID PANEL BASIC Jay Nation MD documented in this encounter [facility] 07-14-2021 History of Presen t illness Narrative CC: Patient presents with: F/U 3 Month: c/o back pain HPI Keith Vera is a 56 year old male who presents today for above. HgbA1c improving but diabetes still not well controlled. Patient does not check his blood sugars. Taking metformin and Actos as prescribed, denies side effects including diarrhea, edema or weight gain. Denies polyuria, polyphagia, polydipsia, blurred vision, nocturia, numbness/tingling or pain in extremities. Continues to have upper back pain on the right, worsening. Gabapentin 300 mg increased to twice a day at last visit, no improvement with higher dose. Also taking meloxicam daily without any relief. Denies new symptoms. He had x-rays ordered in February but has not had done due to cost. Does not think physical therapy will help and can't afford it anyway. Would like something stronger for pain. REVIEW OF SYSTEMS General: no fevers, no chills, no night sweats, no change in appetite, no change in energy and no significant changes in weight Respiratory: no cough, no wheezing, no shortness of breath, no hemoptysis Cardiovascular: no chest pain, no chest pressure, no palpitations and no swelling PAST MEDICAL HISTORY Diagnosis Date Diabetes mellitus (HCC) Failed back syndrome failed drug screen/stopped hydrocodone 09/04 GERD (gastroesophageal reflux disease) 04/14/2021 Lumbar disc disease 05/02/2009 * S/p Laminectomy 2003 (Dr. Altman), TOTAL DISABILITY DUE TO THAT. Mixed hyperlipidemia 04/14/2021 Type 2 diabetes mellitus without complication (HCC) 11/16/2014 Ventricular bigeminy 04/15/2009 PAST SURGICAL HISTORY Procedure Laterality Date LAMINECTOMY W/O FFD / VERT SEG LUMBAR 2003 +/- Laminectomy, lumbar, Dr. Altman ALLERGIES Penicillins MEDICATIONS metFORMIN (GLUCOPHAGE) 500 mg tablet Take 2 tablets by mouth twice daily with meals. . atorvastatin (LIPITOR) 20 mg tablet Take 1 tablet by mouth daily at bedtime. For cholesterol. lisinopril (ZESTRIL, PRINIVIL) 5 mg tablet Take 1 tablet by mouth once daily. pioglitazone (ACTOS) 15 mg tablet Take 1 tablet by mouth once daily. omeprazole (PRILOSEC) 40 mg capsule Take 1 capsule by mouth once daily. acetaminophen (TYLENOL EXTRA STRENGTH ORAL) Take 1 tablet by mouth as needed. gabapentin (NEURONTIN) 300 mg capsule Take 1 capsule by mouth twice daily for 90 days. meloxicam (MOBIC) 15 mg tablet Take 1 tablet by mouth once daily. With food. Blood-Glucose Meter misc Use as directed blood sugar diagnostic (BLOOD GLUCOSE TEST) test strip Use as instructed to test 1-2 times daily FAMILY HISTORY Problem Relation Age of Onset Breast Cancer Mother Hypertension Mother Ischemic Heart Disease Mother ID 2010 Cancer Father Diabetes Father Coronary Artery Disease Father CABG x 4, age 73 No Known Problems Sister No Known Problems Sister Cancer Brother pancreatic hernia Aneurysm Brother Diabetes Brother Ischemic Heart Disease Brother No Known Problems Brother No Known Problems Brother Prostate Cancer Other none Colon Cancer Other none Social History Tobacco Use Smoking status: Former Smoker Packs/day: 2.00 Years: 20.00 Pack years: 40.00 Types: Cigarettes Quit date: 01/06/1998 Years since quittin.5 Smokeless tobacco: Never Used Substance Use Topics Alcohol use: No Drug use: Never PHYSICAL EXAM BP 128/74 Pulse 108 Resp 16 Wt 93 kg (205 lb) SpO2 98% BMI 29.41 kg/m General Appearance: well appearing, in no acute distress, alert Lungs: Lungs clear to auscultation. No wheezing, rhonchi, rales. Heart: RRR without murmur, gallop, or rubs. No ectopy Back: tenderness with palpation of right upper back including thoracic spine ASSESSMENT/PLAN: 1. 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 Patient declined to start checking blood sugars. - Continue current medications - Increase pioglitazone (Actos) to 30 mg daily - PIOGLITAZONE 30 MG TABLET 2. Chronic right-sided thoracic back pain - ICD9: 724.1, 338.29, ICD10: M54.6, G89.29 Chronic upper back pain worsening. Stressed need for x-rays to try and determine cause of pain and rule out any other causes besides musculoskeletal, patient continues to decline x-rays Increase Gabapentin to 600 mg at bedtime, continue with 300 mg in the AM Recommend referral to PT and pain management, patient declined both Follow-up in 3 months as scheduled or sooner for any worsening symptoms 3. Lumbar disc disease - ICD9: 722.93, ICD10: M51.9 Increase Gabapentin as above - GABAPENTIN 300 MG CAPSULE Prescription instructions reviewed with patient as applicable. Potential red flag symptoms discussed with the patient. Reviewed appropriate action plan to take if red flag symptoms occur. Patient agreeable to treatment plan. Angelita White APRN.CNP documented in this encounter [facility] documented as of this encounter (statuses as of 07/14/2021) [facility]12-[facility]-2012 History of Past illness Narrative* Problem Noted Date Resolved Date Diabetes mellitus 03/07/2012 11/16/2014 Fam hx-ischem heart disease 10/31/201003/23 Overview: Both parents Ventricular bigeminy 11/14/2009 04/14/2021 Overview: 04/2009 -- stress test negative (admitted) Fam hx-diabetes mellitus 05/02/2009 017 Overview: Father, brother Routine general medical exam ination at a health care facility 05/02/2009 11/02/2011 Overview: 10/31/2010, yearly physical Tobacco use disorder 05/02/2009 02/17/2012 Overview: Quit 2008 documented as of this encounter (statuses as of 10/14/2021) [facility] History of Past illness Narrative* Problem Noted Date Resolved Date Diabetes mellitus 03/07/2012 11/16/2014 Fam hx-ischem heart disease 10/31/201003/23 Overview: Both parents Ventricular bigeminy 11/14/2009 04/14/2021 Overview: 04/2009 -- stress test negative (admitted) Fam hx-diabetes mellitus 05/02/2009 017 Overview: Father, brother Routine general medical exam ination at a health care facility 05/02/2009 11/02/2011 Overview: 10/31/2010, yearly physical Tobacco use disorder 05/02/2009 02/17/2012 Overview: Quit 2008 documented as of this encounter (statuses as of 10/15/2021) [facility] History of Past illness Narrative* Problem Noted Date Resolved Date Diabetes mellitus 03/07/2012 11/16/2014 Fam hx-ischem heart disease 10/31/201003/23 Overview: Both parents Ventricular bigeminy 11/14/2009 04/14/2021 Overview: 04/2009 -- stress test negative (admitted) Fam hx-diabetes mellitus 05/02/2009 017 Overview: Father, brother Routine general medical exam ination at a health care facility 05/02/2009 11/02/2011 Overview: 10/31/2010, yearly physical Tobacco use disorder 05/02/2009 02/17/2012 Overview: Quit 2009 documented as of this encounter (statuses as of 11/11/2021) [facility] History of Past illness Narrative* Problem Noted Date Resolved Date Diabetes mellitus 03/07/2012 11/16/2014 Fam hx-ischem heart disease 10/31/201003/23 Overview: Both parents Ventricular bigeminy 11/14/2009 04/14/2021 Overview: 04/2009 -- stress test negative (admitted) Fam hx-diabetes mellitus 05/02/2009 017 Overview: Father, brother Routine general medical exam ination at a health care facility 05/02/2009 11/02/2011 Overview: 10/31/2010, yearly physical Tobacco use disorder 05/02/2009 02/17/2012 Overview: Quit 2008 documented as of this encounter (statuses as of 04/16/2022) [facility] History of Past illness Narrative* Problem Noted Date Resolved Date Diabetes mellitus 03/07/2012 11/16/2014 Fam hx-ischem heart disease 10/31/201003/23 Overview: Both parents Ventricular bigeminy 11/14/2009 04/14/2021 Overview: 04/2009 -- stress test negative (admitted) Fam hx-diabetes mellitus 05/02/2009 017 Overview: Father, brother Routine general medical exam ination at a health care facility 05/02/2009 11/02/2011 Overview: 10/31/2010, yearly physical Tobacco use disorder 05/02/2009 02/17/2012 Overview: Quit 2008 documented as of this encounter (statuses as of 06/16/2022) [facility]12[facility] History of Past illness Narrative* Problem Noted Date Diagnosed Date Resolved Date Diabetes mellitus 03/07/2012 11/16/2014 Fam hx-ischem heart disease 10/31/2010 04/14/2021 Overview: Both parents Ventricular bigeminy 11/14/2009 022 Overview: 04/2009 -- stress test negative (admitted) Fam hx-diabetes mellitus 05/02/200912/2016 Overview: Father, brother Routine general medical exam ination at a health care facility 05/02/2009 11/02/2011 Overview: 10/31/2010, yearly physical Tobacco use disorder 05/02/2009 012 Overview: Quit 2008 documented as of this encounter (statuses as of 10/15/2022) [facility] History of Past illness Narrative* Problem Noted Date Diagnosed Date Resolved Date Diabetes mellitus 03/07/2012 11/16/2014 Fam hx-ischem heart disease 10/31/2010 04/14/2021 Overview: Both parents Ventricular bigeminy 11/14/2009 022 Overview: 04/2009 -- stress test negative (admitted) Fam hx-diabetes mellitus 05/02/200912/2016 Overview: Father, brother Routine general medical exam ination at a health care facility 05/02/2009 11/02/2011 Overview: 10/31/2010, yearly physical Tobacco use disorder 05/02/2009 012 Overview: Bal 2008 documented as of this encounter (statuses as of 05/06/2023) [facility] Type 2 diabetes mellitus without complication, unspecified whether alf insulin use (HCC)- Primary Chronic right-sided thoracic back pain Lumbar disc disease Other and unspecified disc disorder of lumbar region [facility] Diagnosis Failed back syndrome- Primary Other unspecified back disorder Lumbar disc disease Other and unspecified disc disorder of lumbar region Type 2 diabetes mellitus without complication, without long-term current use of insulin (HCC) Screening for colon cancer Special screening for malignant neoplasms, colon Mixed hyperlipidemia [facility] Diagnosis Mixed hyperlipidemia- Primary Lumbar disc disease Other and unspecified disc disorder of lumbar region Failed back syndrome Other unspecified back disorder Type 2 diabetes mellitus without complication, without long-term current use of insulin (HCC) [facility] Diagnosis Type 2 diabetes mellitus without complication, unspecified whether alf insulin use (HCC) [facility] Diagnosis Type 2 diabetes mellitus without complication, without long-term current use of insulin (HCC)- Primary Mixed hyperlipidemia Primary hypertension Unspecified essential hypertension Screening for colon cancer Special screening for malignant neoplasms, colon Screening for prostate cancer Special screening for malignant neoplasm of prostate documented in this encounter [facility] Reason for Referral Specialty Diagnoses / Procedures Referred By Contac t Referred To Contact Ophthalmology Diagnoses Type 2 diabetes mellitus without complication, without long-term current use of insulin (HCC) Procedures CONSULT TO OPHTHALMOLOGY OFFICE/[facility] MDM 60-74 MINUTES Jay Nation MD [address] [place] [address] Referral ID Status Reason Start Date Expiration Date Visits Requested Visits Authorized [id number] Authorized PCP Requested Referral 10/14/2021 10/14/2022 1 1 Specialty Diagnoses / Procedures Referred By Contac t Referred To Contact Pain Management Diagnoses Lumbar disc disease Failed back syndrome Procedures CONSULT TO PAIN MGT Jay Nation MD [facility] [place] [address] Referral ID Status Reason Start Date Expiration Date Visits Requested Visits Authorized [id number] Ref Not Required PCP Requested Referral 10/14/2021 10/14/2022 1 1 Summary Purpose Family History No Family History Records Found Advance Directives No Advanced Directives Records Found Additional Source Comments Source Comments (unrecognize d section and content) In the event this informatio n is protected by the Federal Confidentiality of Alcohol and Drug Abuse Patient Records regulations: The Federal rules restrict any use of the information to criminally investigate or prosecute any alcohol or drug abuse patient.[facility] the event this information is protected by the Federal Confidentiality of Alcohol and Drug Abuse Patient Records regulations: The Federal rules restrict any use of the information to criminally investigate or prosecute any alcohol or drug abuse patient.[facility] the event this information is protected by the Federal Confidentiality of Alcohol and Drug Abuse Patient Records regulations: The Federal rules restrict any use of the information to criminally investigate or prosecute any alcohol or drug abuse patient.[facility] the event this information is protected by the Federal Confidentiality of Alcohol and Drug Abuse Patient Records regulations: The Federal rules restrict any use of the information to criminally investigate or prosecute any alcohol or drug abuse patient.[facility] the event this information is protected by the Federal Confidentiality of Alcohol and Drug Abuse Patient Records regulations: The Federal rules restrict any use of the information to criminally investigate or prosecute any alcohol or drug abuse patient.[facility] the event this information is protected by the Federal Confidentiality of Alcohol and Drug Abuse Patient Records regulations: The Federal rules restrict any use of the information to criminally investigate or prosecute any alcohol or drug abuse patient.[facility] the event this information is protected by the Federal Confidentiality of Alcohol and Drug Abuse Patient Records regulations: The Federal rules restrict any use of the information to criminally investigate or prosecute any alcohol or drug abuse patient.[facility] the event this information is protected by the Federal Confidentiality of Alcohol and Drug Abuse Patient Records regulations: The Federal rules restrict any use of the information to criminally investigate or prosecute any alcohol or drug abuse patient.[facility] Reason for Visit (unrecogniz ed section and content) Reason Comments F/U 6 months Reason Comments Scheduling Reason Comments Results Reason Comments F/U 6 months Reason Onset Date Comments Refill Request 06/16/2022 Reason Onset Date Comments Refill Request 05/06/2023 Care Teams (unrecognized sec tion and content) [employer] Developer Relationship Specialty Start Date End Date Jay Nation MD [address] [facility] [place] [address] PCP - General Internal Medicine 03/03/21 [employer] Developer Relationship Specialty Start Date End Date Jay Nation MD [address] [facility] [place] [address] PCP - General Internal Medicine 03/03/21 [employer] Developer Relationship Specialty Start Date End Date Jay Nation MD [address] [facility] [address] PCP - General Internal Medicine 03/03/21 [employer] Developer Relationship Specialty Start Date End Date Jay Nation MD [address] [facility] [place], [place] [id number] PCP - General Internal Medicine 03/03/21 [employer] Developer Relationship Specialty Start Date End Date Jay Nation MD [address] [facility] [place], [place] [id number] PCP - General Internal Medicine 03/03/21 (unrecognized sect ion and content) No Status Records Found INFORMATION SOURCE (unrecogn ized section and content) FOR RECORDS PERTAINING TO PATIENTS WHO ARE OR HAVE BEEN ENROLLED IN A CHEMICAL DEPENDENCY/SUBSTANCEABUSE PROGRAM, SOME INFORMATION MAY BE OMITTED. This clinical summary was aggregated from multiple sources. Caution should be exercised in using it in the provision of clinical care. This summary normalizes information from multiple sources, and as a consequence, information in this document may materially change the coding, format and clinical context of patient data. In addition, data may be omitted in some cases. CLINICAL DECISIONS SHOULD BE BASED ON THE PRIMARY CLINICAL RECORDS. [employer] [facility]. provides no warranty or guarantee of the accuracy or completeness of information in this document.
== END | disposition home or self-care (01) ==
LOC: LAB.FUTURE 16:12
PROVIDERS: Visit Provider Anesthesiology Pain Medicine
DX: F11.20 Opioid dependence, uncomplicated (principal)

== ENCOUNTER → 2023-05-24 | Outpatient (CLI) | payer MEDICARE, SELFPAY ==
[2023-05-24 10:24] LABS: Amphetamine Urine VISTA NEGATIVE (<1000 ng/mL); Barbiturate Urine VISTA NEGATIVE (< 200 ng/mL); Benzodiazepine Urine VISTA NEGATIVE (< 200 ng/mL); Cocaine Urine VISTA NEGATIVE (< 300 ng/mL); Ecstacy Urine VISTA NEGATIVE (< 500 ng/mL); Methadone Urine VISTA NEGATIVE (< 300 ng/mL); PCP Urine VISTA NEGATIVE (< 25 ng/mL); THC Urine VISTA NEGATIVE (< 50 ng/mL); Vista UDS pH Range 5
== END | disposition home or self-care (01) ==
PROVIDERS: Referring Provider Anesthesiology Pain Medicine; Visit Provider Anesthesiology Pain Medicine
DX: F11.20 Opioid dependence, uncomplicated (principal)
CPT/HCPCS: 80307